=== PATIENT | female | born 2000 | race African-American/Black ===

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

== ENCOUNTER 2021-06-04 11:20 | Outpatient (CLI) | payer BC, SELFPAY ==
--- NOTE | ~2021-06-04 | XR_ITS ---
EXAMINATION: XR chest 2V DATE: 06/04/2021 11:59 INDICATION: Chest tightness. TECHNIQUE: Frontal and lateral views of the chest were obtained. COMPARISON: CT abdomen and pelvis 12/16/2020 FINDINGS: The chest demonstrates clear lungs without pneumonia, pleural effusion, or pneumothorax. Th e heart size is normal. IMPRESSION: 1. No acute cardiopulmonary disease. Reviewed, dictated and finalized at location A. RICT REPRESENTATIVE
--- NOTE | 2021-06-04 12:08 | ECG_ITS ---
Measurements Intervals [place] Rate: 73 P: 69 MA: 120 QRS: 84 QRSD: 73 T: 50 QT: 349 QTc: 385 Interpretive Statements SINUS RHYTHM BASELINE WANDER- I, II, AVR, AVL, AVF, V1-V3 BORDERLINE ECG Electronically Signed On 06-04-2021 12:59:37 BOARD RUNNER by Aron Mittal D.O.
[2021-06-04 12:22] LABS: Basophils Percent Auto 0.5 % (0.2-1.2); Hematocrit 26.7 % (37.0-47.0); Hemoglobin 8.2 g/dL (12.0-15.0); Lymphocytes Absolute Auto 1.11 K/mm3 (0.9-3.2); Lymphocytes Percent Auto 55.2 % (18.3-44.2); Mean Corpuscular HGB Conc 30.7 g/dl (32-36); Mean Corpuscular Hemoglobin 24.3 pg (26-34); Mean Platelet Volume 10.2 fl (7.4-10.4); Monocytes Absolute Auto 0.2 K/mm3 (0.1-0.6); Monocytes Percent Auto 7.5 % (2.6-8.5); Neutrophils Absolute Auto 0.7 K/mm3 (1.3-6.7); Neutrophils Percent Auto 36.8 % (45.5-73.1); Platelet Count Result 324 k/mm3 (150-375); Red Blood Count 3.38 M/mm3 (4.2-5.4); Red Cell Distribution Width 15.1 % (11.5-14.5)
[2021-06-04 12:25] LABS: Alanine Aminotransferase 25 U/L (4-35); Albumin Level 4.1 g/dL (3.5-5.1); Alkaline Phosphatase 139 U/L (38-126); Anion Gap 10 mmol/L (8-16); Aspartate Amino Transferase 31 U/L (14-36); Bilirubin,Total 0.3 mg/dL (0.2-1.3); Blood Urea Nitrogen 16 mg/dL (7-17); Calcium 9.4 mg/dL (8.4-10.2); Carbon Dioxide 21 mmol/L (22-30); Chloride 110 mmol/L (98-107); Estimated Glomerular Filt Rate > 60; Glucose 91 mg/dL (65-110); Potassium 3.9 mmol/L (3.4-5.0); Sodium 141 mmol/L (137-145)
[2021-06-04 13:16] LABS: Platelet Estimate Adequate (Adequate)
[2021-06-04 13:17] LABS: Hypochromasia 1+ (NORMAL); Schistocytes 1+ (NORMAL)
[2021-06-06 13:38] LABS: CMV DNA Quant PCR IU/mL 33392 IU/mL; Cytomegalovirus DNA Quant PCR 4.52 log IU/mL; Cytomegalovirus DNA Source Plasma
[2021-06-06 16:58] LABS: GGT 152 U/L (3-40)
== END 2021-06-04 11:21 | disposition home or self-care (01) ==
LOC: ANHLAB 11:30
DX: Z29.8 Encounter for other specified prophylactic measures (principal); Z94.4 Liver transplant status
CPT/HCPCS: 36415; 71046; 80053; 80197; 82977; 85025; 87497; 93005

== ENCOUNTER 2021-12-12 12:03 | Outpatient (CLI) | payer BC, SELFPAY ==
[2021-12-12 12:37] LABS: Basophils Percent Auto 0.3 % (0.2-1.2); Eosinophils Percent Auto 0.3 % (0-4.4); Hematocrit 32.9 % (37.0-47.0); Hemoglobin 10.2 g/dL (12.0-15.0); Immature Granulocyte Absolute 0.01 K/mm3 (0.00-0.031); Immature Granulocyte Percent A 0.3 % (0-0.5); Lymphocytes Absolute Auto 1.12 K/mm3 (0.9-3.2); Lymphocytes Percent Auto 38.1 % (18.3-44.2); Mean Corpuscular Hemoglobin 28.4 pg (26-34); Mean Corpuscular Volume 91.6 fl (80-100); Mean Platelet Volume 10.1 fl (7.4-10.4); Monocytes Absolute Auto 0.3 K/mm3 (0.1-0.6); Monocytes Percent Auto 10.9 % (2.6-8.5); Neutrophils Absolute Auto 1.5 K/mm3 (1.3-6.7); Neutrophils Percent Auto 50.1 % (45.5-73.1); Platelet Count Result 223 k/mm3 (150-375); Red Blood Count 3.59 M/mm3 (4.2-5.4); Red Cell Distribution Width 13.2 % (11.5-14.5); White Blood Count 2.9 K/mm3 (4.5-10.0)
[2021-12-12 12:56] LABS: Alanine Aminotransferase 14 U/L (6-35); Albumin Level 4.3 g/dL (3.5-5.1); Alkaline Phosphatase 64 U/L (38-126); Anion Gap 7 mmol/L (8-16); Aspartate Amino Transferase 25 U/L (14-36); Bilirubin,Total 0.2 mg/dL (0.2-1.3); Blood Urea Nitrogen 16 mg/dL (7-17); Calcium 8.9 mg/dL (8.4-10.2); Carbon Dioxide 24 mmol/L (22-30); Chloride 109 mmol/L (98-107); Estimated Glomerular Filt Rate > 60; Glucose 78 mg/dL (65-110); Magnesium 1.4 mg/dL (1.6-2.3); Potassium 4.2 mmol/L (3.4-5.0); Sodium 140 mmol/L (137-145)
[2021-12-14 07:46] LABS: GGT 66 U/L (3-40)
[2021-12-15 13:25] LABS: Tacrolimus Prograf 6.9 mcg/L
== END 2021-12-12 12:04 | disposition home or self-care (01) ==
LOC: ANHLAB 12:11
DX: Z94.4 Liver transplant status (principal); Z29.8 Encounter for other specified prophylactic measures; E83.42 Hypomagnesemia
CPT/HCPCS: 36415; 80053; 80197; 82977; 83735; 85025

== ENCOUNTER 2022-07-21 14:33 | Emergency (ER) | payer BC, SELFPAY ==
--- NOTE | ~2022-07-21 | CT_ITS ---
EXAMINATION: CT abdomen pelvis wo con DATE: 07/21/2022 19:46 INDICATION: epigastric pain radiating to L flank and into groin TECHNIQUE: Computed tomography (CT) of the abdomen and pelvis was performed without intravenous contr ast. Automated exposure control and iterative reconstruction technique were employed. The dose-length product was 189.16 mGy-cm. COMPARISON: None. FINDINGS: Lower thorax: Unremarkable Liver: Normal. Biliary/Gallbladder: Gallbladder is collapsed. No bile duct dilation. Pancreas: No mass or duct dilation. Spleen: Normal. Adrenals:No mass. Kidneys: No mass, stone, or hydronephrosis. Right renal atrophy/scarring. GI tract: No small or large bowel dilation. Appendix is not visualized. Mesentery/Peritoneum: No ascites, mass, or free air. Retroperitoneum: No mass. Pelvis: Partially decompressed urinary bladder with wall thickening. The remaining pelvic organs are within normal limits. Soft Tissues: Soft tissues and body wall unremarkable. Bones: No acute osseous finding. IMPRESSION: Bladder wall thickening, which may be due to incomplete distention or cystitis. Otherwise, acute abdo minopelvic process detected. Reviewed, dictated and finalized at location K. USER OPERATOR IMPRESSION: Bladder wall thickening, which may be due to incomplete distention or cystitis. Otherwise, acute abdominopelvic process detected.
[2022-07-21 15:23] VITALS: BP 123/73; PULSE 93; RESP 20; TEMP 36.6; O2SAT 100
--- NOTE | 2022-07-21 18:03 | ED.ABDPAIN ---
HPI - Abdominal Pain General Chief Complaint: Abdominal Pain Stated Complaint: abd pain Time Seen by Provider: 07/21/22 17:30 History of Present Illness HPI narrative: Patient is a 22-year-old female with history of liver transplant over 1 year ago who presents ER with upper abdominal pain. She reports its aching radiating pain that is been ongoing intermittently over the last month. Over the last week she has had it daily. Its in the epigastrium moves to the left side of her upper abdomen and towards her back. No association with eating or drinking. No fevers or chills or sweats. No diarrhea. She is not constipated she is passing gas. She is without abdominal distention. She contacted her transplant team and has not heard back about an appointment. Her last appointment where she was going talk to him about her discomfort was canceled this because she had COVID. Related Data Home Medications Medication Instructions Recorded Confirmed lamotrigine 150 mg tablet 150 mg PO BID 12/16/20 12/17/20 levetiracetam 500 mg tablet 1,000 mg PO BID 12/16/20 12/17/20 (Keppra) levetiracetam 500 mg tablet 500 mg PO HS 12/17/20 12/17/20 Allergies Allergy/AdvReac Type Severity Reaction Status Date / Time iohexol Allergy Anaphylaxis Verified 07/21/22 18:10 [From contrast - CT, X-RAY] Review of Systems Constitutional: Constitutional: Reports no additional constitutional complaints Cardiovascular: Cardiovascular: Reports no additional cardiovascular complaints Respiratory: Respiratory: Reports no additional respiratory complaints Gastrointestinal: Gastrointestinal: Reports no additional gastrointestinal complaints Genitourinary: Genitourinary: Reports no additional female genitourinary complaints [facility] Past Medical History Medical History (Updated 07/21/22 @ 20:46 by Isidro Loomis MD) Leukopenia Seizure disorder Surgical History Surgical History (Updated 07/21/22 @ 18:04 by Isidro Loomis MD) History of liver transplant Family History Family History Other Family history normal Social History Social History (System 11/02/21 @ 14:37 by Rudy Thakur) Social History: 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 She transferred to [employer] this fall. She is originally from [place]. she is a sophomore. She does not smoke drink or use illicit substances. She reports that she has a boyfriend who visited her approximately 2 weeks ago. She and her sister share an apartment. She works part-time at [email or web address]. Primary care physician: Dr. Knutson (threader operator located in [place]) Smoking status: Never smoker Alcohol intake: never Substance use: never Substance use type: does not use Gender identity (if verbalized by the patient): Female Spiritual care concerns: No Exam Narrative: GENERAL: Well-appearing, well-nourished, and in no acute distress. HEAD: Normocephalic, atraumatic. CHEST: Clear to auscultation. No respiratory distress. HEART: Regular rate and rhythm. Normal peripheral pulses. ABDOMEN: Soft, nontender, nondistended, normal active bowel sounds. Abdominal scar consistent with liver transplantation. EXTREMITIES: Normal range of motion. No edema. SKIN: Warm, dry, no rash. NEURO: Alert and oriented x3. PSYCH: Normal mood and affect. Course Course Emergency Course: Patient resting comfortably. I have reviewed the patient's results and imaging. Is likely patient is experiencing gastritis causing her upper abdominal discomfort. She reports that she is to take Pepcid with her medication is recently stopped. We also discussed the thickening of her bladder and abnormal UA. We will put her 3 days of antibiotics which should be sufficient for any possible urinary tract infection that may be present. Is recommended she follow-up with her liver specialist/transplant team given her history. She is verbalized understanding of t
[2022-07-21 18:08] LABS: Basophils Percent Auto 0.4 % (0.2-1.2); Eosinophils Absolute Auto 0.1 K/mm3 (0-0.3); Eosinophils Percent Auto 0.9 % (0-4.4); Hematocrit 37.8 % (37.0-47.0); Hemoglobin 11.9 g/dL (12.0-15.0); Immature Granulocyte Absolute 0.01 K/mm3 (0.00-0.031); Immature Granulocyte Percent A 0.2 % (0-0.5); Lymphocytes Absolute Auto 3.21 K/mm3 (0.9-3.2); Lymphocytes Percent Auto 57.8 % (18.3-44.2); Mean Corpuscular HGB Conc 31.5 g/dl (32-36); Mean Corpuscular Hemoglobin 26.5 pg (26-34); Mean Corpuscular Volume 84.2 fl (80-100); Mean Platelet Volume 9.6 fl (7.4-10.4); Monocytes Absolute Auto 0.4 K/mm3 (0.1-0.6); Monocytes Percent Auto 7.4 % (2.6-8.5); Neutrophils Absolute Auto 1.9 K/mm3 (1.3-6.7); Neutrophils Percent Auto 33.3 % (45.5-73.1); Platelet Count Result 351 k/mm3 (150-375); Red Blood Count 4.49 M/mm3 (4.2-5.4); White Blood Count 5.6 K/mm3 (4.5-10.0)
[2022-07-21 18:10] LABS: Add Urine Microscopic? YES; Appearance Urine Slightly Cloudy (Clear); Bilirubin Urine Negative (Negative); Blood Urine 1+ (Negative); Color Urine Yellow (Yellow); Glucose Urine UA Negative (Negative); Ketones Urine Trace mg/dL (Negative); Leukocyte Esterase Ur Negative LEU/UL (Negative); Nitrate Urine Negative (Negative); Protein Urine Negative (Negative); Specific Grav Ur >= 1.030 (1.001-1.035); Urobilinogen Urine 0.2 mg/dL (<2.0); pH Urine 5.5 (5.0-9.0)
[2022-07-21 18:12] LABS: Amorphous Sediment Urine Few; Bacteria Urine Trace /hpf; Mucus Urine Heavy /lpf; Squamous Epithelial Cell Urine Few /hpf (Few)
[2022-07-21 18:44] LABS: Alanine Aminotransferase 18 U/L (6-35); Albumin Level 5.2 g/dL (3.5-5.1); Alkaline Phosphatase 91 U/L (38-126); Anion Gap 13 mmol/L (8-16); Aspartate Amino Transferase 32 U/L (14-36); Bilirubin,Total 0.3 mg/dL (0.2-1.3); Blood Urea Nitrogen 15 mg/dL (7-17); Calcium 9.7 mg/dL (8.4-10.2); Carbon Dioxide 24 mmol/L (22-30); Chloride 104 mmol/L (98-107); Estimated CRCL calculation 62 ml/min; Estimated Glomerular Filt Rate > 60; Glucose 88 mg/dL (65-110); Lipase 72 U/L (23-300); Potassium 4.6 mmol/L (3.4-5.0); Sodium 141 mmol/L (137-145)
--- NOTE | 2022-07-21 19:21 | PC.NURSE ---
Report received from BARI Trejo. Assumed care of patient at this time.
--- NOTE | 2022-07-21 19:24 | PC.NURSE ---
Patient declined morphine at this time, states I feel okay right now.
[2022-07-21 19:58] VITALS: BP 114/80; PULSE 72; RESP 18; TEMP 36.7; O2SAT 98
== END 2022-07-21 21:05 | disposition home or self-care (01) ==
PROVIDERS: Emergency Medicine; Emergency Provider Emergency Medicine
DX: K29.70 Gastritis, unspecified, without bleeding (principal); N39.0 Urinary tract infection, site not specified; G40.909 Epilepsy, unspecified, not intractable, without status epilepticus; Z94.4 Liver transplant status
CPT/HCPCS: 36415; 74176; 80053; 81001; 81025; 83690; 85025; 99284